=== PATIENT | female | born 1970 | race Caucasian/White ===

== ENCOUNTER 2025-09-24 20:56 | Emergency (ER) | payer BC, SELFPAY ==
[2025-09-24 20:58] VITALS: BP 161/68; PULSE 81; RESP 15; TEMP 36.5; O2SAT 99; BMI 33.7
--- NOTE | 2025-09-24 21:44 | ED.RN ---
Pt with several episodes of vomiting while in triage. Provided with water to rinse out mouth. Protocol orders placed to facilitate care.
[2025-09-24 22:08] LABS: AST(SGOT) 24 U/L (<=31); Alanine Aminotransfer ALT/SGPT 26 U/L (<=34); Albumin, Serum 4.4 g/dL (3.5-5.0); Alkaline Phosphatase 76 U/L (35-104); Anion Gap 11 (5-15); BUN 15 mg/dL (4-19); BUN/Creat Ratio 13.6 RATIO (10-20); Calcium,Total 9.5 mg/dL (7.6-11.0); Carbon Dioxide 25.2 mmol/L (21.0-32.0); Chloride 102 mmol/L (98-108); Estimated Creatinine Clearance 62.71 ml/min (50-250); Globulin 2.8 g/dL (2.2-4.2); Glucose 144 mg/dL (70-99); Lipase 48 U/L (13-75); Potassium 3.8 mmol/L (3.3-5.1)
--- NOTE | 2025-09-24 22:10 | CT_ITS ---
PROCEDURE: CTA CHEST W/WO CONTRAST 09/24/2025 REASON FOR EXAM: R/O DISSECTION BACK PAIN TECHNIQUE: Procedure Code: [id number] Modality: CT Procedure: CTA CHEST W/WO CONTRAST Multiplanar Sagittal and Coronal images were obtained. 3D post processing was performed. CONTRAST: Isovue 370 VOLUME: 100 mL One or more dose reduction techniques were used (e.g., Automated exposure control, adjustment of the mA and/or kV according to patient size, use of iterative reconstruction technique). RADIATION DOSE SUMMARY: DLP: 75.02 mGycm COMPARISON: None. FINDINGS: THORACIC AORTA: Normal. No aneurysm or dissection. PULMONARY VESSELS: No central filling defects suspicious for pulmonary emboli on this nondedicated exam. Normal caliber of the main pulmonary trunk. No evidence for cardiac strain. LUNGS/PLEURA: Clear. No airspace consolidation/edema, pneumothorax or pleural effusion. MEDIASTINUM: Unremarkable. No lymphadenopathy. HEART: Normal size. No pericardial effusion or significant coronary artery calcification. UPPER ABDOMEN: No significant abnormality visualized. Probable mild hepatic steatosis. Cholelithiasis without evidence for acute cholecystitis. No biliary ductal dilatation. BONES: No significant abnormality. CT/CTA Chest W/WO Contrast IMPRESSION: No acute intrathoracic abnormality. Normal thoracic aorta. Reading Location: [id number]
--- NOTE | 2025-09-24 22:11 | EKG12_ITS ---
Test Reason : DYSRHYTHMIA Blood Pressure : */* mmHG Vent. Rate : 106 BPM Atrial Rate : 106 BPM P-R Int : 124 ms QRS Dur : 88 ms QT Int : 354 ms P-R-T Axes : 51 27 16 degrees QTcB Int : 470 ms Sinus tachycardia Otherwise normal ECG Confirmed by Eron Barclay ([id number]), material expeditor CINTHIA NEELY ([id number]) on 09/25/2025 11:46:47 AM Referred By: Confirmed By: Eron Barclay
[2025-09-24 22:13] LABS: Internal QC Validated? YES +Cl - CLEAR BKGD; Pregnancy, Serum, hCG Quali. NEGATIVE Negative; Record Kit Lot#, Serum Preg. 0000980607
[2025-09-24 22:37] LABS: Hematocrit 37.8 % (37-47); Hemoglobin 12.5 g/dL (12.0-15.0); Immature Granulocytes Count 0.030 X10^3/uL (0.0-0.0); Mean Corp Hgb Conc 33.1 g/dL (32-36); Mean Corpuscular Volume 87.5 fL (81-99); Mean Platelet Vol. 10.1 fl (6.2-12.0); NRBC Flagged by Analyzer 0 % (0-5); Platelet Count 380 K/mm3 (150-450); RBC Distribution Width CV 13.2 % (11.6-14.6); RBC Distribution Width SD 42.5 fl (35.1-43.9); Red Blood Count 4.32 M/mm3 (4.2-5.4); White Blood Count 9.0 K/mm3 (4.4-11.0)
[2025-09-24 22:57] VITALS: BP 131/60; PULSE 115; RESP 16; O2SAT 99
[2025-09-24 23:11] LABS: Troponin T High Sensitivity < 6 ng/L (<=14)
[2025-09-25] VITALS: BP 161/67; PULSE 115; RESP 15; O2SAT 97
[2025-09-25 00:06] LABS: Troponin T High Sens 2 HR < 6 ng/L (<=14)
--- NOTE | 2025-09-25 00:29 | EDS_ITS ---
HPI History of Present Illness Chief Complaint: Back Informant: patient and family Narrative Narrative: 54-year-old female presenting to the emergency room chief complaint of vomiting back pain. Patient was on her way home from work when she got a rather uncomfor table feeling in between her shoulder blades. She could not find a position of comfort or anything that made it worse. She eventually went home and ate because it had been hours since she last ate. She states that she came to emergency and developed some epigastric lower rib cage burning discomfort and eventually had vomiting. She states she feels better but not back to her normal self. She has had some discomfort while swallowing items such as Triscuits. She did notes no indigestion. No black or bloody stools. No fevers no diarrhea. She denies any leg symptoms or arm symptoms [facility] Medical History Bug bite Home Medications Medication Instructions Recorded Last Taken Type fluoxetine 10 mg capsule 10 mg PO QDAY 04/23/25 Unkno wn History spironolactone 100 mg tablet 100 mg PO QDAY 04/23/25 U nknown History Allergy/AdvReac Type Severity Reaction Status Date / Time insect venom (insect bites) Allergy Mild swelling Verified 09/24/25 20:58 poison cecy extract Allergy Mild swelling Verified 09/24/25 20:58 Family History no significant family his Social History Smoking Status: Never smoker ROS ROS ED Constitutional Constitutional ED: Denies chills, fever(s) or weight loss Eyes Eyes: Denies change in vision or diplopia ENT ENT ED: Denies ear pain, rhinorrhea or sore throat Cardiovascular Cardiovascular: Reports chest pain; Denies orthopnea, palpitations or racing heartbeat Respiratory/Chest Respiratory/Chest: Denies cough, dyspnea or orthopnea Gastrointestinal Gastrointestinal: Reports abdominal pain, nausea and vomiting; Denies diarrhea Genitourinary Genitourinary ED: Denies dysuria, hematuria or urinary frequency Musculoskeletal Musculoskeletal: Reports back pain; Denies arthralgias or myalgias Integumentary Denies abscess or rash Neurologic Neurologic: Denies headache(s) or weakness Psychiatric Psychiatric: Denies anxiety, depression, suicidal ideation or suicidal thoughts Endocrine Endocrinology: Denies polydipsia, polyphagia or polyuria Allergic/Immunologic Allergic/Immunologic ED: Denies mouth swelling, tongue swelling or urticaria EXAM Physical Exam Const Vital Signs: 09/24/25 20:58 09/24/25 22:57 09/25/25 00:00 Temperature 97.7 F L Temperature Source Oral Pulse Rate 81 115 H 115 H Respiratory Rate 15 16 15 Blood Pressure 161/68 H 131/60 H 161/67 H Blood Pressure Mean 99 83 98 Pulse Ox 99 99 97 Oxygen Delivery Method Room Air Room Air Room Air Positive well nourished and well developed General Appearance ED: well developed and NAD HEENT Reports normocephalic, head/scalp atraumatic and moist mucous membranes Eyes PERRL and EOMs intact bilaterally Neck no lymphadenopathy, supple and no JVD Resp normal respiratory effort and clear to auscultation bilaterally Cardio regular rate, regular rhythm and no murmurs Cardio Narrative: Equal pulses bilaterally in upper and lower extremities GI normal to inspection, nondistended, normoactive bowel sounds and non-tender Palpation: soft Back/Spine no CVA tenderness and normal ROM Extremity normal to inspection General Extremety ED: Negative for edema General Extremity: Negative for edema Neuro oriented x3 and CN's II-XII intact bilaterally Sensorium / Orientation: alert Motor Exam: strength 5/5 throughout Psych mental status grossly normal Mood & Affect: Negative for depressed or tearful Skin no rashes or lesions noted and no wounds MDM MDM MDM Narrative Medical decision making narrative: Differential diagnosis includes but not limited to aortic dissection esophagitis gastritis acute cholecystitis acute coronary syndrome pulmonary embolism esophageal spasm Patient's EKG demonstrates a sinus tachycardia at a rate of 106 bpm. No ischemic changes. 2 cardiac enzymes are negative. White count is 9 hemoglobin 12.5 platelet count is 380. Blood glucose 144. Normal LFTs normal lipase. CTA of the chest was obtained which does not demonstrate large pulmonary embolism or aortic dissection. It is noted that the patient has cholelithiasis. Patient was watched on the monitor and has no cardiac dysrhythmias. Heart rate has been consistently around 110 115. However as I talk with her about the above results her heart rate is coming down into the 88-90 range. Patient is feeling better. This could be gallbladder attack. She does have cholelithiasis but I do not see any tenderness over the gallbladder elevated white count or obstructive symptoms. This could the beginning of a gastrointestinal illness. This could be GERD related and esophageal spasms. At this point I think the patient can be safely discharged home. She is to monitor her symptoms talked about doing a trial of Pepcid. She is to follow-up with her doctor directly if symptoms recur or return here. Patient is comfortable with this plan History & Record Review Discussion w/independent historian: Patient and Family Lab Data Attestation: I reviewed the patient's lab results. Labs: Laboratory Results - last 24 hr 09/24/25 09/24/25 21:39 23:33 WBC 9.0 RBC 4.32 Hgb 12.5 Hct 37.8 MCV 87.5 MCH 28.9 MCHC 33.1 RDW Std Deviation 42.5 RDW Coeff of Sally 13.2 Plt Count 380 MPV 10.1 Immature Gran % (Auto) 0.300 Neut % (Auto) 73.9 H Lymph % (Auto) 17.5 L [place] % (Auto) 5.7 Eos % (Auto) 1.9 Baso % (Auto) 0.7 Absolute Neuts (auto) 6.7 Absolute Lymphs (auto) 1.58 Nucleated RBC % 0 Sodium 139 Potassium 3.8 Chloride 102 Carbon Dioxide 25.2 Anion Gap 11 BUN 15 Creatinine 1.11 Estim Creat Clear Calc 62.71 Est GFR (MDRD) Non-Af 59 L BUN/Creatinine Ratio 13.6 Glucose 144 H Calcium 9.5 Total Bilirubin 0.24 AST 24 ALT 26 Alkaline Phosphatase 76 Troponin T High Sens < 6 Troponin T Hi Sens 2 Hr < 6 Total Protein 7.2 Albumin 4.4 Globulin 2.8 Albumin/Globulin Ratio 1.6 Lipase 48 Serum , Qual NEGATIVE Radiography Diagnostic Testing: Clinical Impression(s) from Imaging Studies Chest CTA 09/24/25 22:10 IMPRESSION: No acute intrathoracic abnormality. Normal thoracic aorta. Reading Location: [facility] Discharge Plan Triage Chief Complaint: Back ED Provider: Jalen Gordon Dx/Rx/DC Orders Clinical Impression: Back pain, Vomiting, Cholelithiases Instructions: Gallstones Dc, ED Vomiting (Adult) Prescriptions: No Action fluoxetine 10 mg capsule 10 mg PO QDAY spironolactone 100 mg tablet 100 mg PO QDAY Primary Care Provider: Shelley Edgar Referrals: Shelley Edgar DO [Primary Care Provider, Internal Medicine] - As Needed Print Language: [place] Disposition Disposition: Home, Self Care Discharge Date/Time: 09/25/25 00:33
[2025-09-25 00:30] VITALS: BP 161/67; PULSE 93; RESP 20; TEMP 36.5; O2SAT 97
== END 2025-09-25 00:33 | disposition home or self-care (01) ==
PROVIDERS: Emergency Provider Emergency Medicine; PCP Internal Medicine; Visit Provider Emergency Medicine
DX: K80.20 Calculus of gallbladder without cholecystitis without obstruction (principal)
CPT/HCPCS: 71275; 80053; 83690; 84484; 84703; 85025; 93005; 99283; Q9967; A4216